=== PATIENT | male | born 1955 ===

== ENCOUNTER 2020-05-02 08:48 | Observation (INO) | payer MEDICARE, SELFPAY ==
[2020-05-02] VITALS (17 sets, daily range): BP systolic 126–202; BP diastolic 72–111; PULSE 59–73; RESP 10–21; TEMP 36.3–37.1; O2SAT 96–100; BMI 25.1; BMI 25.0
[2020-05-02] MEDS: LIDOCAINE 2% (UROJET) 5 ML GEL ×2 (09:30→09:44)
--- NOTE | 2020-05-02 09:45 | PC.NURSE ---
Attempted to catheterize patient with 16fr silicone, 14fr coude and 12 fr coude cath, all unsuccessfully even though pt's pain was well controlled and he was relaxed. Pt has had to have urology cath in the past. Discussed w/ Dr. Rowe.
--- NOTE | 2020-05-02 09:49 | ED_ITS ---
HPI - Male Genitourinary General Chief complaint: Urogenital-Male Stated complaint: urinary retention issue Time Seen by Provider: 05/02/20 09:12 Source: patient Mode of arrival: Family Vehicle Limitations: no limitations History of Present Illness HPI Narrative: CC: urinary retention HPI: The patient is a 64-year-old male who comes into the emergency department with urinary retention. The patient just recently moved here from [place]. He states that he has made an appointment with [facility] for the end of the month. The patient states that he has a history of cysts bladder stones arm which act like a ball in valve and obstruct his urethra and get lodged in the neck of the urethra. The patient has had decreased urination for the last 10-12 days. However over the last 3 days he has had markedly decreased urination and became obstructed this morning. The patient periodically has self cathed hims elf but was unable to cath himself today so he came into the emergency department. He has had intermittent pain and discomfort. He states that if he strains he will get a little bit a urine. Bladder scan revealed that he had 571 cc in his bladder. The patient denies a history diabetes mellitus myocardial infarction COPD asthma but has had hypertension. He denies any fever chills or sweats headache numbness tingling paresthesias anesthesia is paresis or paralysis. He has had no chest pain cough shortness of breath difficulty in breathing. He has had back pain. He has had no nausea vomiting diarrhea. Related Data Home Medications Medication Instructions Recorded Confirmed losartan 25 mg PO DAILY 05/02/20 05/02/20 Previous Rx's Medication Instructions Recorded ciprofloxacin HCl 250 mg PO Q12H #20 tab 05/02/20 oxycodone 5 mg PO Q4H PRN #14 tab 05/02/20 Allergies Allergy/AdvReac Type Severity Reaction Status Date / Time No Known Drug Allergies Allergy Verified 05/02/20 09:11 Review of Systems Review of Systems Narrative: The patient's review of systems were all negative except for those mentioned in the history of present illness. Patient History Medical History Bladder stones (Acute) Diverticulitis (Acute) Hypertension (Acute) Surgical History (Updated 05/02/20 @ 13:57 by Fernando Flores MD) H/O transurethral resection of prostate (Acute) History of partial colectomy (Acute) Social History household members: none Smoking Status: Former smoker alcohol intake: current substance use type: marijuana Smoking Status: Former smoker alcohol intake frequency: 3 or more drinks per day Substance Use Type: marijuana Exam Narrative Exam Narrative: PHYSICAL EXAM: CONSTITUTIONAL: Awake, Alert, Oriented, Coherent, Cooperative in NAD. Does not appear toxic or ill. Patient is very cooperative and talkative HEAD: AT/NC EENT: PERRL, FROM of eyes. NOSE:No epistaxis or nasal drainage MOUTH:Oral mucosa is moist and pink. NECK: Supple, no obvious JVD, Trachea is midline without stridor, no palpable LN. SPINE: Palpationof the cervical, Thoracic, Lumbar or Sacral spine reveals no gross deformity or tenderness. No CVA tenderness. THORAX: No deformity, retractions, chest wall tenderness. LUNGS: Clear, symmetrical breath sounds without respiratory distress. HEART: Normal heart tones, regular rhythm and rate without murmur. ABDOMEN: Soft, non-tender, normal bowel sounds without guarding, rebound, rigidity or palpable mass. EXTREMITIES: No edema, deformity, tenderness or cyanosis. SKIN: No rash, bruising, petechiae or purpura. NEURO: Awake, alert, oriented, conversive, cranial nerves II-XII are symmetrical , moves all 4 extremities and is ambulatory. MENTAL HEALTH: Does not appear anxious or depressed. Initial Vital Signs Initial Vital Signs: Vital Signs Temperature 98.5 F 05/02/20 08:56 Pulse Rate 73 05/02/20 08:56 Respiratory Rate 16 05/02/20 08:56 Blood Pressure 179/111 H 05/02/20 08:56 Pulse Oximetry 97 05/02/20 08:56 Course Course Course Narrative: 0949 nurse Nargis is unable to pass a Nath catheter or 14 Rwandan coude catheter. The patient states that he has been obstructed before and has required catheters being passed by Urology. The patient states that he has an appointment with [facility]. Will call the urologist. 1020: Spoke with who will see the patient in between surgical patients. The patient is to be made NPO and have the difficult catheterization cart at bedside. Orders Ordered: ED Orders 05/02/20 12:08 CBC Auto Diff [Complete Blood Count AUTO DIFF] Stat Comprehensive Metabolic Panel Stat 05/02/20 12:29 Urinalysis and Microscopic Stat Urine Culture Stat 05/02/20 12:42 XR KUB Stat Acetaminophen (Tylenol) 650 mg PO Q4H PRN PRN Reason: Pain, Mild (1-3) Fentanyl (Sublimaze) 0 mcg IV Q5M PRN PRN Reason: Pain, Moderate (4-6) Hydromorphone HCl (Dilaudid) 0.5 mg IV Q2H PRN PRN Reason: Pain, Severe (7-10) Lactated Ringer's (Lactated Ringers) 500 mls @ 25 mls/hr IV CONT [facility] Last Infusion: 05/02/20 16:53 Dose: 0 mls/hr Documented by: Infusion: 05/02/20 14:44 Dose: 0 mls/hr Documented by: Admin: 05/02/20 14:05 Dose: 25 mls/hr Documented by: IMER Ciprofloxacin (Cipro) 400 mg in 200 mls @ 200 mls/hr IV NOW [facility] Last Infusion: 05/02/20 15:44 Dose: 0 mls/hr Documented by: Infusion: 05/02/20 14:44 Dose: 0 mls/hr Documented by: Admin: 05/02/20 14:06 Dose: 200 mls/hr Documented by: IMER Lactated Ringer's (Lactated Ringers) 1,000 mls @ 42 mls/hr IV CONT [facility] Last Infusion: 05/02/20 16:53 Dose: 0 mls/hr Documented by: Admin: 05/02/20 14:50 Dose: 42 mls/hr Documented by: CONSTANTINE Metoclopramide HCl (Reglan) 5 mg PO Q4H PRN PRN Reason: Nausea And Vomiting Last Admin: 05/02/20 17:57 Dose: 5 mg Documented by: JEANINE Ondansetron HCl (Zofran) 4 mg IV NOW PRN PRN Reason: Nausea And Vomiting Oxycodone HCl (Percolone) 5 mg PO Q4H PRN PRN Reason: Pain, Moderate (4-6) Discontinued Medications Belladonna Alkaloids/Opium (B&O Supprettes) 1 each ID NOW ONE Stop: 05/02/20 16:21 Last Admin: 05/02/20 16:21 Dose: 1 each Documented by: BOYD Hydralazine HCl (Apresoline) 10 mg IV NOW ONE Stop: 05/02/20 14:33 Last Admin: 05/02/20 14:39 Dose: 10 mg Documented by: STAR Vital Signs Vital signs: Vital Signs - 8 hr 05/02/20 11:37 Pulse Rate 69 Respiratory Rate 14 Blood Pressure 142/86 H Pulse Oximetry 97 MDM - Male Genitourinary Lab Data Result diagrams: 05/02/20 12:08 05/02/20 12:08 Labs: Lab Results 05/02/20 05/02/20 05/02/20 Range/Units 12:08 12:08 12:29 WBC 5.4 (4.5-11.0) X10^3/uL RBC 5.02 (4.5-5.9) X10^6/uL Hgb 15.4 (13.5-17.5) g/dL Hct 43.9 (41-53) % MCV 87.5 (80-100) fL MCH 30.7 (26-34) PG MCHC 35.1 (30-36) % RDW 14.5 (11.6-14.8) % Plt Count 246 (150-400) X10^3/uL Neut % (Auto) 66.8 (50-75) % Lymph % (Auto) 23.6 L (25-40) % [place] % (Auto) 8.0 (3-14) % Eos % (Auto) 1.4 L (2-4) % Baso % (Auto) 0.2 (0-2) % Neut # (Auto) 3600 (5383-9419) /uL Lymph # (Auto) 1300 (0762-2780) /uL [place] # (Auto) 400 (0-900) /uL Eos # (Auto) 100 (0-450) /uL Baso # (Auto) 0 (0-100) /uL Sodium 139 (137-145) mmol/L Potassium 4.0 (3.4-5.1) mmol/L Chloride 110 H (98-107) mmol/L Carbon Dioxide 23 (22-32) mmol/L BUN 16 (9-20) mg/dL Creatinine 0.87 (0.66-1.25) mg/dL Estimated GFR > 60.0 (>60) mL/min BUN/Creatinine Ratio 18.4 (6-22) Glucose 96 (80-110) mg/dL Calcium 10.6 H (8.4-10.2) mg/dL Total Bilirubin 1.0 (0.2-1.3) mg/dL AST 23 (17-59) IU/L ALT 12 (<50) IU/L Alkaline Phosphatase 80 (38-126) U/L Total Protein 7.1 (6.3-8.2) g/dL Albumin 4.2 (3.5-5.0) g/dL Globulin 2.9 (1.7-4.1) g/dL Albumin/Globulin Ratio 1.4 (1.0-2.8) Urine Color Yellow Urine Appearance Clear Urine pH 7.0 (4.5-8.0) Ur Specific [place] 1.015 (1.000-1.035) Urine Protein 1+ H (Negative) Urine Glucose (UA) Negative (Negative) g/dL Urine Ketones Negative (NEGATIVE) Urine Occult Blood 3+ H (Negative) Urine Nitrate Positive (Negative) Urine Bilirubin Negative (NEGATIVE) Urine Urobilinogen 0.2 (0.2) E.U./dL Ur Leukocyte Esterase 3+ H (NEGATIVE) Urine RBC 10-30/hpf H (0-5/HPF) Urine WBC >100/hpf H (0-5/HPF) Ur Squamous Epith Cells 5-10 /hpf H (0-5/HPF) Ur Transition Epith Cell 1-5/hpf (0-5/HPF) Ur Renal Epithelial Cell 1-5/hpf H (0-1/HPF) Amorphous Sediment 1+ Urine Bacteria Many (>30) H (None) WBC Casts 5-10/lpf H (None) Ur Culture Indicated? Specimen cultured Discharge Plan Departure Patient Disposition: Admitted as Observation Clinical Impression: Acute retention of urine, Obstructed, uropathy Discharge Date/Time: 05/02/20 14:46 Instructions: DI for Cystoscopy, DI for Prescription Opioid Use Referrals: Fernando Flores MD [Physician] - Admit Date/Time: 05/02/20 13:53 Admit Provider: Fernando Flores
[2020-05-02 12:13] LABS: Add Manual Diff / Slide Review NO; Basophils Absolute Auto 0 /uL (0-100); Basophils Percent Auto 0.2 % (0-2); Eosinophils Absolute Auto 100 /uL (0-450); Eosinophils Percent Auto 1.4 % (2-4); Hematocrit 43.9 % (41-53); Hemoglobin 15.4 g/dL (13.5-17.5); Lymphocytes Absolute Auto 1300 /uL (1100-4500); Lymphocytes Percent Auto 23.6 % (25-40); Mean Corpuscular HGB Conc 35.1 % (30-36); Mean Corpuscular Hemoglobin 30.7 PG (26-34); Mean Corpuscular Volume 87.5 fL (80-100); Monocytes Absolute Auto 400 /uL (0-900); Neutrophils Absolute Auto 3600 /uL (1500-7000); Neutrophils Percent Auto 66.8 % (50-75); Platelet Count 246 X10^3/uL (150-400); Red Blood Cell Count 5.02 X10^6/uL (4.5-5.9); Red Cell Distribution Width 14.5 % (11.6-14.8); White Blood Cell Count 5.4 X10^3/uL (4.5-11.0)
--- NOTE | 2020-05-02 12:23 | PC.NURSE ---
patient in room complaining of discomfort. He attempted to self catheterize with an 8fr red rubber cathetor and was not successful. Urology to consult between cases in the OR.
[2020-05-02 12:27] LABS: Alanine Aminotransferase 12 IU/L (<50); Albumin 4.2 g/dL (3.5-5.0); Albumin Globulin Ratio 1.4 (1.0-2.8); Alkaline Phosphatase 80 U/L (38-126); Aspartate Aminotransferase 23 IU/L (17-59); BUN Creatinine Ratio 18.4 (6-22); Blood Urea Nitrogen 16 mg/dL (9-20); Calcium 10.6 mg/dL (8.4-10.2); Carbon Dioxide 23 mmol/L (22-32); Chloride 110 mmol/L (98-107); Estimated Glomerular Filt Rate > 60.0 mL/min (>60); Globulin 2.9 g/dL (1.7-4.1); Glucose 96 mg/dL (80-110); HEMOLYSIS < 15 (0-50); Sodium 139 mmol/L (137-145); Total Protein 7.1 g/dL (6.3-8.2)
[2020-05-02 12:33] LABS: Appearance Urine UA CLEAR; Bilirubin Urine UA NEGATIVE (NEGATIVE); Color Urine UA YELLOW; Glucose Urine UA NEGATIVE (Negative); Ketones Urine UA NEGATIVE (NEGATIVE); Leukocyte Esterase Urine UA 3+ (NEGATIVE); Nitrite Urine UA POSITIVE (Negative); Occult Blood Urine UA 3+ (Negative); Protein Urine UA 1+ (Negative); Specific Gravity Urine UA 1.015 (1.000-1.035); Urobilinogen Urine UA 0.2 E.U./dL (0.2)
[2020-05-02 12:38] LABS: Amorphous Sediment Urine 1+; Bacteria Urine Many (>30); Culture Indicated Urine Specimen Cultured; RBC Urine 10-30/HPF (0-5/HPF); Renal Epithelial Cells Urine 1-5/HPF (0-1/HPF); Squamous Epithelial Cell Urine 5-10 /HPF (0-5/HPF); Transitional Epi Cells Urine 1-5/HPF (0-5/HPF); WBC Urine >100/HPF (0-5/HPF); White Blood Cell Casts Urine 5-10/LPF
--- NOTE | 2020-05-02 12:42 | DI.RAD.S_ITS ---
PROCEDURE: XR KUB INDICATIONS: check bladder for stones TECHNIQUE: One view of the abdomen acquired. COMPARISON: None. FINDINGS: Bowel: Bowel gas pattern is normal. Soft tissues: No suspicious abdominal calcifications. Visualized solid organ contours appear normal in size. Bones: No suspicious bony lesions. IMPRESSION: No plain radiographic evidence of bladder, ureteral, or renal calculus. Dictated by: Yunior Franklin M.D. on 05/02/2020 at 13:33 Approved by: Yunior Franklin M.D. on 05/02/2020 at 13:34
--- NOTE | 2020-05-02 13:46 | PM.CN ---
History of Present Illness Consult details Date Patient Seen: 05/02/20 Time Patient Seen: 13:47 Chief complaint: urinary retention issue Reason for consult: Urinary retention Requesting provider: Jed Rowe Narrative: The patient is a 64-year-old white male who presented to the [facility] Emergency Department earlier this day with a several day history of progressively worsening obstructive voiding symptoms. He reports that he is status post TURP approximately 10 years ago in [place]. He reports having had a 2nd ?TURP? about 1 year ago. He states that he began having recurrent problems with bladder calculi in the last year on 2 prior occasions. In very ladder days of the month of February, he got into difficulties again. He presented to [facility] Emergency Department. Apparently Dr. Romero was successful in placing a very difficult catheter. The the patient reports that a ?wire? was used. On further questioning he states that he does not remember any other details because his mind was occupied at the time with pain. He was then instructed to remove his catheter 2 weeks later. A cystoscopy was tentatively scheduled for May 25. In the interval, he had gone ahead and schedule an appointment with [facility] for May 21. He reports having tried CIC himself several times the last several days without success. Emergency department staff today failed to position a catheter satisfactorily. Urology consultation is now requested. KUB 05/02/2020 shows no evidence of radiopaque density over the expected projection of the upper lower urinary tract. Urinalysis 05/02/2020, demonstrates leukocyte esterase positivity leukocytes and many bacteria. The specimen has been submitted for culture and culture is pending. Meds Home Medications and Allergies Allergies Allergy/AdvReac Type Severity Reaction Status Date / Time No Known Drug Allergies Allergy Verified 05/02/20 09:11 Review of Systems Review of Systems ROS: Yes All systems reviewed with the patient and are negative except as otherwise documented Exam Vital Signs (past 8 hours): - 05/02/20 08:56 05/02/20 11:37 Temperature 98.5 F Pulse Rate 73 69 Respiratory Rate 16 14 Blood Pressure 179/111 H 142/86 H Pulse Oximetry 97 97 Oxygen Delivery Method Room Air Narrative Exam Narrative: He is a well-developed and well-nourished white male in no current distress. Head/neck-male pattern balding, otherwise atraumatic and normocephalic Chest- clear, equal, and unlabored. Heart-regular rhythm and rate no extra sounds. Abdomen-mildly firm above the pubis and palpation heels complain of urgency. For no localizing tenderness per se, and bowel sounds are active. Genitalia-normal adult male. Prostate-deferred. Objective Labs Result Diagrams: 05/02/20 12:08 05/02/20 12:08 Labs: Laboratory Results - last 24 hr 05/02/20 05/02/20 05/02/20 12:08 12:08 12:29 WBC 5.4 RBC 5.02 Hgb 15.4 Hct 43.9 MCV 87.5 MCH 30.7 MCHC 35.1 RDW 14.5 Plt Count 246 Neut % (Auto) 66.8 Lymph % (Auto) 23.6 L [place] % (Auto) 8.0 Eos % (Auto) 1.4 L Baso % (Auto) 0.2 Neut # (Auto) 3600 Lymph # (Auto) 1300 [place] # (Auto) 400 Eos # (Auto) 100 Baso # (Auto) 0 Sodium 139 Potassium 4.0 Chloride 110 H Carbon Dioxide 23 BUN 16 Creatinine 0.87 Estimated GFR > 60.0 BUN/Creatinine Ratio 18.4 Glucose 96 Calcium 10.6 H Total Bilirubin 1.0 AST 23 ALT 12 Alkaline Phosphatase 80 Total Protein 7.1 Albumin 4.2 Globulin 2.9 Albumin/Globulin Ratio 1.4 Urine Color Yellow Urine Appearance Clear Urine pH 7.0 Ur Specific [place] 1.015 Urine Protein 1+ H Urine Glucose (UA) Negative Urine Ketones Negative Urine Occult Blood 3+ H Urine Nitrate Positive Urine Bilirubin Negative Urine Urobilinogen 0.2 Ur Leukocyte Esterase 3+ H Urine RBC 10-30/hpf H Urine WBC >100/hpf H Ur Squamous Epith Cells 5-10 /hpf H Ur Transition Epith Cell 1-5/hpf Ur Renal Epithelial Cell 1-5/hpf H Amorphous Sediment 1+ Urine Bacteria Many (>30) H WBC Casts 5-10/lpf H Ur Culture Indicated? Specimen cultured Assessment & Plan Assessment & Plan narrative: Assessment: 1. Urinary retention. 2. UTI. Plan: 1. Schedule CYSTOSCOPY/POSSIBLE TRANSURETHRAL RESECTION OR INCISION OF BLADDER NECK CONTRACTURE/POSSIBLE LITHOLAPAXY. 2. CULTURE URINE.
--- NOTE | 2020-05-02 13:56 | PC.NURSE ---
Covid swab was taken and sent to lab at 1355. Aayush from lab was notified this was for rapid results for surgery. Surgery was scheduled for 1500.
[2020-05-02] MEDS: LACTATED RINGERS 500 ML 25 ML IV (14:05)
[2020-05-02] MEDS: CIPROFLOXACIN 400 MG/200 ML PIGGYBACK 200 MG IV (14:06)
[2020-05-02] MEDS: HYDRALAZINE 20 MG/ML VIAL 10 MG IV (14:39)
[2020-05-02 14:48] LABS: COVID19 -Nasal RAPID Negative (Negative)
[2020-05-02] MEDS: LACTATED RINGERS 1,000 ML 42 ML IV (14:50)
--- NOTE | 2020-05-02 15:03 | SUR.OPER ---
Lithotomy on padded OR bed, head on pillow, arms secured on padded arm boards at <90 degrees abduction. Legs secured in padded yellow fins stirrups.
--- NOTE | 2020-05-02 16:16 | P.OP_ITS ---
Operative Date/Time/Diagnoses Date of procedure: 05/02/20 Time of procedure: 16:16 Pre-op diagnosis: Urinary retention Post-op diagnosis: same Procedure & Clinicians Procedure: 1. Cystoscopy and transurethral incision of bladder neck contracture. Same procedure as scheduled: Yes Indications: 1. Urinary retention. 2. Urinary tract infection. Surgeon: Fernando Flores Click Yes if Unassisted: Yes Anesthesia Type: General Operative Notes Findings: 1. Urethral- 3 annular bulbar strictures-wide caliber. 2. External sphincter-gaping. 3. Prostate-status post TUR, nonobstructing. 4. Bladder-2 mm bladder neck contracture. Bladder contained about 1000 cc of turbid, malodorous urine. No bladder stones seen. Ureteral orifices normal bilaterally. Closure Type: not applicable Specimen(s): other (Urine for culture and sensitivity) Applied: catheter (22 Sammarinese Narvon tip catheter) Estimated Blood Loss (mL): 1 Blood products transfused: none Tourniquet time (min): 0 Procedure in detail: The patient was positioned in supine and administered general anesthesia. He was then repositioned and the lower abdomen, genitalia, and perineum, were prepped and draped in sterile fashion. The 22 Sammarinese panend oscope was then passed into the lower urinary tract with the findings as described above. The panendoscope was then removed. The 21 Sammarinese urethra tome was then advanced to the lower urinary tract and advanced proximally under direct visualization. At the extremely stenosed bladder neck a 0.35 glidewire was advanced through the aperture. Next radial incisions were made with the cold knife circumferentially to open the bladder neck op widely. Incisions were made to a depth of vascularized tissue. The scope was then advanced over the wire into the bladder lumen proper the bladder urine was then sampled and sent to microbiology for exam nature and culture. The bladder neck was then further dilated with gentle full cream motion of the scope sheath to the right left anterior and posterior. The bladder was then partially filled and the scope was backloaded off the wire. A 22 Sammarinese Narvon tip catheter was then fashioned at the table. This was then advanced over the wire into the bladder. The balloon was then inflated to 10 cc and placed to gravity drainage. The patient was then repositioned supine, awakened, and transferred to [facility] in stable condition. Complications: none Post-operative Condition: stable Disposition: PACU Plan for aftercare: Discharge home
[2020-05-02] MEDS: BELLADONNA/OPIUM SUPPOSITORIES 1 EACH PR (16:21)
--- NOTE | 2020-05-02 17:16 | SUR.PHASEI ---
Assumed care from MYRON Wellington, stable PACU stay. Report to Norma. Pt left with Wally SANCHES in stable condition. Bed down and locked.
[2020-05-02] MEDS: METOCLOPRAMIDE HCL 10 MG TABLET 5 MG PO (17:57)
--- NOTE | 2020-05-02 18:07 | PC.NURSE ---
Pt to room 219 from PACU wide awake @ 1700. Admission completed. Reports has called for ride to home which will arrive around 1800. Pt denies nausea, denies pain and reports spinal resolved. Able to move all extremities independently. Pt reports comfort and knowledge re leg bag as well as large bag. Pt was provided with printed teaching materials for changing bag and changes own large [place] bag to leg bag. Urine is light pink in color. Takes several bites dinner and is rubbing abdomen. Inquired of pt if having nausea and pt reports, little bit. PO reglan administered as well as sips dusty rosana. Pts iv left in to monitor pt for relief. Pt provided with printed prescription and discharge instructions in printed and verbal format provided. Pt awaiting ride. Primary nurse Wally informed of these activities.
--- NOTE | 2020-05-02 18:34 | PC.NURSE ---
Addendum entered by Wally Garcia R.N. 05/02/20 19:40: assessing patients feeling and ability to walk. Patient is much more alert and his ability to ambulate has improved greatly since earlier assessment. Patient reports numbness has decreased more and reports my buttocks often takes longer to come back around with all my previous surgeries. Patient was able to ambulate around bed x2, stand without holding on to FWW, and was notably using FWW much less. Patient reports he feels just fine and is ready to return home w/ ride. Patient was able to get dressed on own, IV was removed, he however, didn't tolerate peeling off the tape from his hairy arm well. Pt. was escorted downstairs via WC w/ belongings in hand down to personal vehicle with nurse physician primary care sports medicine and friend to drive. VSS, A&0x4. Original Note: Patient is A&O x4, pleasant and able to make needs known when nec. Patient reports his ride home will be arriving at 1800, but has yet to arrive. Attempt to ambulate with FWW in room with nurse assitance. Patient was able to stand and make 4 steps safely but was weighing heavily on the help of his FWW. Patient reports legs feel slightly weak and heels of feet feel numb as well as buttocks. Patient is aware that we are going to wait longer to d/c him as he is not quite ready to ambulate safely without his FWW.
== END 2020-05-02 19:44 | disposition home or self-care (01) ==
LOC: ED 13:29 → AC 13:54
PROVIDERS: Admitting Provider Specialist; Emergency Provider Emergency Medicine; Referring Provider Emergency Medicine; Visit Provider Specialist
PROC: (CPT 52276; principal; 2020-05-02 15:00)
DX: N30.90 Cystitis, unspecified without hematuria (principal); R33.9 Retention of urine, unspecified; Z11.59 Encounter for screening for other viral diseases; I10 Essential (primary) hypertension
CPT/HCPCS: 52276; 36415; 51798; 74018; 80053; 81001; 85025; 87077; 87086; 87186; 87635; 96365; 96375; 99284; G0378; J0360; J0744; J2250; J2704; J3010

== ENCOUNTER → 2020-05-15 10:19 | Outpatient (CLI) | payer MEDICARE, SELFPAY ==
[2020-05-15 10:00] VITALS: BMI 25.0
== END ==
PROVIDERS: Visit Provider Specialist
DX: N39.0 Urinary tract infection, site not specified (principal); R33.8 Other retention of urine
CPT/HCPCS: 51798; 81002; 87086

== ENCOUNTER → 2020-06-12 10:10 | Outpatient (CLI) | payer MEDICARE, SELFPAY ==
[2020-05-15 10:00] VITALS: BMI 25.0
[2020-06-12 11:58] LABS: Appearance Urine UA CLEAR; Bilirubin Urine UA NEGATIVE (NEGATIVE); Color Urine UA YELLOW; Glucose Urine UA NEGATIVE (Negative); Ketones Urine UA NEGATIVE (NEGATIVE); Leukocyte Esterase Urine UA NEGATIVE (NEGATIVE); Nitrite Urine UA NEGATIVE (Negative); Occult Blood Urine UA TRACE-INTACT (Negative); Protein Urine UA NEGATIVE (Negative); Specific Gravity Urine UA <=1.005 (1.000-1.035); Urobilinogen Urine UA 0.2 E.U./dL (0.2)
== END ==
PROVIDERS: Referring Provider Specialist; Visit Provider Specialist
DX: N39.0 Urinary tract infection, site not specified (principal)
CPT/HCPCS: 81003

== ENCOUNTER → 2020-08-13 11:44 | Outpatient (CLI) | payer MEDICARE, SELFPAY ==
[2020-06-24 09:04] VITALS: BMI 25.0
[2020-08-13 14:09] LABS: Prostate Specific Antigen 0.573 ng/mL (0.10-4.00)
== END ==
PROVIDERS: Referring Provider Specialist; Visit Provider Specialist
DX: N40.0 Benign prostatic hyperplasia without lower urinary tract symptoms (principal)
CPT/HCPCS: 36415; 84153

== ENCOUNTER → 2020-08-19 09:10 | Outpatient (CLI) | payer MEDICARE, SELFPAY ==
[2020-06-24 09:04] VITALS: BMI 25.0
== END ==
PROVIDERS: Visit Provider Specialist
DX: N30.01 Acute cystitis with hematuria (principal); N32.0 Bladder-neck obstruction; N40.0 Benign prostatic hyperplasia without lower urinary tract symptoms; Z87.440 Personal history of urinary (tract) infections
CPT/HCPCS: 52000; 81002; 87077; 87086; 87186; 99214

== ENCOUNTER → 2020-08-22 14:45 | Outpatient (CLI) | payer MEDICARE, SELFPAY ==
[2020-06-24 09:04] VITALS: BMI 25.0
[2020-08-25 01:55] LABS: COVID19 Sendout Not Detected (Not Detect)
== END ==
PROVIDERS: Visit Provider Physician Assistant
DX: Z11.59 Encounter for screening for other viral diseases (principal)
CPT/HCPCS: 87635

== ENCOUNTER 2020-08-25 12:33 | Day surgery (SDC) | payer MEDICARE, SELFPAY ==
[2020-06-24 09:04] VITALS: BMI 25.0
[2020-08-22 07:59] VITALS: BMI 25.0
[2020-08-25] VITALS (11 sets, daily range): BP systolic 145–170; BP diastolic 79–96; PULSE 52–68; RESP 14–20; TEMP 36.3–36.5; O2SAT 97–100; BMI 24.5
[2020-08-25] MEDS: LACTATED RINGERS 500 ML 25 ML IV (13:15)
--- NOTE | 2020-08-25 14:29 | PM.PREOP ---
Pre-operative Note Interval Note History & Physical reviewed/Exam performed by Physician: Yes Changes to H&P: No
[2020-08-25] MEDS: AMPICILLIN/SULBACTAM 3 GM 3 GM in SODIUM CHLORIDE 0.9% 100 ML IV ×2 (14:37→15:19)
[2020-08-25] MEDS: GENTAMICIN 160 MG in SODIUM CHLORIDE 0.9% 100 ML 104 ML IV ×2 (15:00→15:24)
--- NOTE | 2020-08-25 15:15 | SUR.OPER ---
Lithotomy on padded OR bed, head on pillow, arms secured on padded arm boards at <90 degrees abduction. Legs secured in padded yellow fins stirrups.
[2020-08-25] MEDS: BELLADONNA/OPIUM SUPPOSITORIES 1 EACH PR (15:19)
--- NOTE | 2020-08-25 15:48 | PM.OP.1 ---
Operative Date/Time/Diagnoses Date of procedure: 08/25/20 Time of procedure: 15:48 Pre-op diagnosis: Bladder outlet obstruction Post-op diagnosis: other (1. Bladder neck contraction 2. Obstructing prostatic regrowth) Procedure & Clinicians Procedure: 1. Cystoscopy and transurethral resection of recurrent bladder neck contracture. 2. Cystoscopy and transurethral resection of prostate (redo TURP). Same procedure as scheduled: No (Resection of additional prostatic regrowth or residual prostate tissue.) Indications: 1. Bladder outlet obstruction. 2. Recurrent UTI. 3. Urinary retention Surgeon: Fernando Flores Click Yes if Unassisted: Yes Anesthesia Type: Spinal Operative Notes Findings: 1. Urethra-at least 3 annular, wide caliber strictures of the distal bulbar and proximal penile urethra. 2. External sphincter-coapted 3. Prostate-obstructing lateral and median lobe regrowth. 4. [id number]-[id number] Tanzanian fixed bladder neck contracture. 2+ trabeculation. Normal orifices bilaterally. No stone, tumor, or foreign body visualized. Closure Type: not applicable Specimen(s): none sent Applied: catheter (Twenty-two Tanzanian [address] Nath catheter to gravity.) Estimated Blood Loss (mL): 0 Blood products transfused: none Tourniquet time (min): 0 Procedure in detail: Patient was positioned supine with the following ad successful placement of spinal anesthetic. He was provided intravenous sedation. He was then repositioned in semi lithotomy and the lower abdomen genitalia and groin were then prepped and draped in sterile fashion. A 24 Tanzanian resectoscope was then passed lower urinary tract under direct visualization with findings as described above. The working element was then fitted with a button electrode. Having unable to advance the resectoscope into the bladder proper the button electrode was carefully insinuated through the small aperture and then lateral incisions were made bilaterally until the scope could be advanced in the bladder proper. And careful inspection was undertaken with the findings described above. Continued button electrode incisions were made at the 3 and 9:00 a.m. positions generously. A 3rd but electrode incision was then made at the 6 o'clock position since the bladder neck was very elevated. The ureteral orifices were identified within the bladder proper and were avoided. The intervening tissue between the 3 6 and 9:00 a.m. incisions was then carefully taken down to lower the left edge of the bladder neck. Additional tissue was then resected from the lateral and anterior prostatic fossa. Finally additional median lobe tissue was taken down from the bladder neck to the level of verumontanum. Hemostasis was attained with electrocautery. At no point was resection taken deeper than will the surgical capsule nor more distal than the verumontanum. The bladder was then left partially filled and the resectoscope was removed. A [address] catheter was then inserted and the balloon was inflated to 15 cc. The bladder with was then drained completely and the catheter was placed to gravity drainage. The patient was then repositioned in supine, was transferred to [facility], and was transferred to recovery in stable condition. Complications: none Post-operative Condition: stable Disposition: PACU Plan for aftercare: Discharge home
--- NOTE | 2020-08-25 16:27 | SUR.PHASEI ---
Addendum entered by Lauren Garland R.N. 08/25/20 16:28: Pt received to PACU at 1546 after spinal and sedation anesthesia. Airway patent, self maintianed. Report received from Dr Karly RN. Original Note: Pt received to PACU at 1546. Airway patent, self maintianed. Report received from Dr Karly RN.
--- NOTE | 2020-08-25 16:59 | SUR.PHASEII ---
-Pt demonstrated changing [place] bag to leg bag without difficulty. -Pt legs/feet with full motion, moderate strength, good sensation to feet. Pt stood with assist x2. Pt unable to maintain weight. Placed back in bed. -Deanna, pt's friend, brought to post op to sit with pt.
--- NOTE | 2020-08-25 17:20 | SUR.PHASEII ---
1715 - Pt slighlty stronger. Able to stand with assistance and take 2 steps forward and backwards. Pt still unsteady.
--- NOTE | 2020-08-25 17:45 | SUR.PHASEII ---
1730 - pt able to steadily stand and walk 8 steps.
== END 2020-08-25 17:37 | disposition home or self-care (01) ==
PROVIDERS: Referring Provider Specialist; Visit Provider Specialist
PROC: 0TBC8ZZ Excision of Bladder Neck, Via Natural or Artificial Opening Endoscopic (ICD-10-PCS; CPT 52500; principal; 2020-08-25 14:00)
DX: N32.0 Bladder-neck obstruction (principal); R33.9 Retention of urine, unspecified; N39.0 Urinary tract infection, site not specified; B96.20 Unspecified Escherichia coli [E. coli] as the cause of diseases classified elsewhere; I10 Essential (primary) hypertension
CPT/HCPCS: 52630; J0295; J2250; J2704

== ENCOUNTER → 2020-12-25 13:53 | Outpatient (CLI) | payer MEDICARE, SELFPAY ==
[2020-12-16 15:22] VITALS: BMI 25.0
[2020-12-25 15:17] LABS: Prostate Specific Antigen 0.543 ng/mL (0.10-4.00)
== END ==
PROVIDERS: Referring Provider Specialist; Visit Provider Specialist
DX: N40.0 Benign prostatic hyperplasia without lower urinary tract symptoms (principal)
CPT/HCPCS: 36415; 84153